=== PATIENT | male | born 1965 | race African-American/Black ===

== ENCOUNTER 2024-05-01 09:52 | Emergency (ER) | payer OTHER ==
[~2024-05-01] VITALS: Ht 175.3 cm; Wt 128.2 kg
[2024-05-01] MEDS ORDERED: IOHEXOL 350 MG/ML 100 ML VIAL ONE (10:00)
[2024-05-01 10:03] VITALS: TEMP 98
[2024-05-01 10:24] LABS: BASOPHILS % (AUTO) 1.1 % (0.0-2.0); EOSINOPHILS % (AUTO) 3.2 % (1.0-6.0); HEMATOCRIT 44.5 % (41-53); HEMOGLOBIN 14.8 g/dL (13.5-17.5); LYMPHOCYTES # (AUTO) 3.3 K/uL (1.0-4.8); LYMPHOCYTES % (AUTO) 32.6 % (22.0-44.0); MEAN CORPUSCULAR HEMOGLOBIN 29.1 pg (26.0-34.0); MEAN CORPUSCULAR HGB CONC 33.4 G/dL (31.0-37.0); MEAN CORPUSCULAR VOLUME 87 fL (80-100); MONOCYTES # (AUTO) 0.6 K/uL (0.1-1.0); MONOCYTES % (AUTO) 5.6 % (2.0-9.0); NEUTROPHILS # (AUTO) 5.8 K/uL (1.8-7.7); NEUTROPHILS % (AUTO) 57.5 % (40.0-70.0); PLATELET COUNT (AUTO) 415 K/uL (150-450); RED CELL DISTRIBUTION WIDTH 13.8 % (11.5-14.5); WHITE BLOOD COUNT (AUTO) 10.1 K/uL (4.5-11.0)
[2024-05-01 10:29] LABS: ANION GAP 11 mmol/L (8-16); CARBON DIOXIDE 25 mmol/L (22-29); CHLORIDE 100 mmol/L (98-107); CREATININE 1.22 mg/dL (0.60-1.30); GLOMERULAR FILTR. RATE CALC > 60 mL/min (>60); GLUCOSE,RANDOM 303 mg/dL (70-110); POTASSIUM 4.5 mmol/L (3.5-5.1); SODIUM SERUM 136 mmol/L (136-145); UREA NITROGEN, BLOOD 14 mg/dL (7-18)
[2024-05-01 10:35] LABS: PROTHROMBIN TIME 10.3 SEC (9.4-11.6)
[2024-05-01 10:38] LABS: ALANINE AMINOTRANSFERASE 23 U/L (12-78); ALBUMIN 3.3 g/dL (3.4-5.0); ALKALINE PHOSPHATASE 97 U/L (46-116); ASPARTATE AMINOTRANSFERASE 13 U/L (15-37); BILIRUBIN,TOTAL 0.4 mg/dL (0.1-1.0); TOTAL PROTEIN, SERUM 7.1 g/dL (6.4-8.2)
[2024-05-01 10:41] LABS: TROPONIN I-HIGH SENSITIVITY 92 ng/L (<76)
[2024-05-01] MEDS: ASPIRIN 81 MG CHEWABLE TABLET PO ONE (10:47)
[2024-05-01] MEDS: CLOPIDOGREL BISULFATE 75 MG TABLET PO ONE (10:48)
[2024-05-01 11:12] LABS: APPEARANCE,URINE CLEAR (CLEAR); BILIRUBIN,URINE NEGATIVE (NEGATIVE); COLOR,URINE LIGHT YELLOW (YELLOW); GLUCOSE, URINE (UA) >=1000 mg/dL (NEGATIVE); KETONES,URINE NEGATIVE (NEGATIVE); LEUKOCYTE ESTERASE ,URINE NEGATIVE (NEGATIVE); NITRATE,URINE NEGATIVE (NEGATIVE); OCCULT BLOOD,URINE SMALL (NEGATIVE); PROTEIN,URINE 100-200,SEE CONFIRM mg/dL (NEGATIVE); SPECIFIC GRAVITIY, URINE 1.035 (1.003-1.030); UROBILINOGEN,URINE <=1.0 mg/dL (<=1.0)
[2024-05-01 11:28] LABS: ALCOHOL, URINE DRUG SCREEN NEGATIVE (NEGATIVE); AMPHET/METH SCREEN,URINE NEGATIVE (NEGATIVE); BARBITURATE SCREEN, URINE NEGATIVE (NEGATIVE); BENZODIAZEPINES SCREEN,URINE NEGATIVE (NEGATIVE); CANNABINOID SCREEN,URINE NEGATIVE (NEGATIVE); COCAINE SCREEN,URINE NEGATIVE (NEGATIVE); METHADONE SCREEN, URINE NEGATIVE (NEGATIVE); OPIATE SCREEN,URINE NEGATIVE (NEGATIVE); PHENCYCLIDINE SCREEN,URINE NEGATIVE (NEGATIVE)
[2024-05-01 11:54] LABS: TROPONIN I-HIGH SENSITIVITY 96 ng/L (<76)
[2024-05-01] MEDS: MORPHINE SULFATE 2 MG/ML SYRINGE IVP ONE (12:12)
[2024-05-01 12:13] LABS: BACTERIA,URINE None Seen /HPF (None Seen); SULFOSALICYLIC ACID,URINE 2+ (Negative); WBC,URINE None Seen /HPF (0-5)
[2024-05-01] MEDS: ACETAMINOPHEN 1000 MG/ISO-OSM 100 ML IV ONE (12:13)
[2024-05-01 12:29] VITALS: BP 147/99; PULSE 91; RESP 15; O2SAT 96
[2024-05-01 16:55] LABS: GLUCOMETER DEV NAME(LOC) ER.7; GLUCOSE,POINT OF CARE 257 MG/DL (70-110)
== END 2024-05-01 13:33 | disposition admitted as inpatient to this hospital (09) ==
LOC: EMS 10:00
DX: I63.9 Cerebral infarction, unspecified (principal)
CPT/HCPCS: 99291; 70496; 96365; 71045; 96375; 80053; 81001; 82962; 84484; 85025; 85610; 85730; 86850; 86900; 86901; 36415; 70498; 93005; 80307; 82948; 70450; Q9967; J2270; J0131; 81002